=== PATIENT | female | born 1950 | race African-American/Black ===

== ENCOUNTER 2020-07-04 20:58 | Inpatient (IN) | payer MEDICARE, MEDICAID ==
[~2020-07-04] VITALS: Ht 174 cm; Wt 65.8 kg
[2020-07-04 20:58] VITALS: BP 148/64
[~2020-07-04 20:58] MED LIST: CLOP75TA4; DEXA5DRO; ESCI5TAB; FLUT1DIS; IBUP100T20; IPRA21SP2; ISOS5TAB4; PROT40; TRAM50TA3 MT; [UNRECOGNIZED DRUG - OTHER]
[2020-07-04] MEDS ORDERED: LORAZEPAM 1MG TABLET PO PRN (22:15)
[2020-07-04] MEDS ORDERED: ZOLPIDEM TARTRATE 5MG TABLET PO PRN (22:15)
[2020-07-04] MEDS ORDERED: ACETAMINOPHEN 325MG TABLET PO PRN (22:15)
[2020-07-04] MEDS ORDERED: HYDROCODONE/ACETAMINOPHEN 5/325MG TABLET PO PRN (22:15)
[2020-07-04] MEDS ORDERED: ONDANSETRON 4MG ODT PO PRN (22:15)
[2020-07-04 22:30] VITALS: BP 148/64
[2020-07-05] MEDS ORDERED: GABA-531 PO (04:28)
[2020-07-05] MEDS ORDERED: DOXE10CA2 PO (04:28)
[2020-07-05] MEDS ORDERED: ATOR40TA70 PO (04:28)
[2020-07-05] MEDS ORDERED: HYDR25TA PO (04:28)
[2020-07-05] MEDS ORDERED: CLON0.1T PO (04:28)
[2020-07-05] MEDS ORDERED: LISI30TA36 PO (04:28)
[2020-07-05] MEDS ORDERED: HYDR-3281 PO (04:28)
[2020-07-05 06:28] LABS: CHLORIDE 107 mEq/L (98-107)
[2020-07-05 06:35] LABS: BASOPHILS % 0.9 % (0.0-2.0); EOSINOPHILS % 0.8 % (0.0-5.0); HEMATOCRIT. 31.7 % (36.0-48.0); HEMOGLOBIN. 10.5 g/dL (12.0-16.0); LYMPHOCYTES % 40.9 % (20.0-50.0); MEAN CORPUSCULAR HEMOGLOBIN 28.4 pg (28.0-32.0); MEAN CORPUSCULAR VOLUME 86.1 fL (81.0-99.0); MEAN PLATELET VOLUME 8.6 fl (7.4-10.4); NEUTROPHILS % 48.4 % (40.0-76.0); PLATELET 245 x1000/uL (130-400); RED BLOOD CELL COUNT 3.69 mill/uL (4.2-5.4); RED CELL DISTRIBUTION WIDTH 16.2 % (11.6-14.6)
[2020-07-05 08:16] VITALS: BP 139/60
[2020-07-05] MEDS: GABAPENTIN 300MG CAPSULE PO SCH ×2 (10:20→16:27)
[2020-07-05] MEDS: LISINOPRIL 20MG TABLET PO SCH (10:21)
[2020-07-05] MEDS: CLONIDINE 0.1MG TABLET PO SCH ×2 (10:21→16:34)
[2020-07-05] MEDS: HYDROCODONE/ACETAMINOPHEN 5/325MG TABLET PO PRN ×2 (10:28→16:36)
[2020-07-05] MEDS: TAMOXIFEN 10MG TABLET PEG SCH ×2 (13:37→21:23)
[2020-07-05 15:10] LABS: CLARITY URINE CLEAR (CLEAR); COLOR URINE YELLOW (YELLOW); KETONES URINE TRACE (NEGATIVE); LEUKOCYTE ESTERASE URINE 1+ (NEGATIVE); NITRITE URINE NEGATIVE (NEGATIVE); OCCULT BLOOD URINE 1+ (NEGATIVE); PH URINE 5.5 (4.5-8.0); PROTEIN URINE TRACE (NEGATIVE); SPECIFIC GRAVITY URINE 1.019 (1.005-1.030); UROBILINOGEN URINE 0.2 E.U./dL (0.2-1.0)
[2020-07-05] MEDS: DOCUSATE SODIUM 100MG CAPSULE PO SCH (16:27)
[2020-07-05 20:00] VITALS: BP 123/61
[2020-07-05] MEDS: ATORVASTATIN CALCIUM 40MG TABLET PO SCH (21:23)
[2020-07-05] MEDS: POLYETHYLENE GLYCOL 3350 (17GM) 1 DOSE PACK PO SCH (21:24)
[2020-07-06 05:34] LABS: PHOSPHORUS 3.5 mg/dL (2.5-4.9)
[2020-07-06 05:52] LABS: FOLIC ACID (FOLATE) SERUM 9.3 ng/mL (>5.38)
[2020-07-06 06:12] LABS: BASOPHILS % 0.9 % (0.0-2.0); EOSINOPHILS % 1.9 % (0.0-5.0); HEMATOCRIT. 31.3 % (36.0-48.0); HEMOGLOBIN. 10.3 g/dL (12.0-16.0); LYMPHOCYTES % 42.1 % (20.0-50.0); MEAN CORPUSCULAR HEMOGLOBIN 28.3 pg (28.0-32.0); MEAN CORPUSCULAR VOLUME 86.4 fL (81.0-99.0); MEAN PLATELET VOLUME 8.5 fl (7.4-10.4); NEUTROPHILS % 46.1 % (40.0-76.0); PLATELET 279 x1000/uL (130-400); RED BLOOD CELL COUNT 3.63 mill/uL (4.2-5.4); RED CELL DISTRIBUTION WIDTH 16.3 % (11.6-14.6)
[2020-07-06] MEDS: PANTOPRAZOLE 40MG DR TABLET PO SCH (06:12)
[2020-07-06 08:00] VITALS: BP 136/91
[2020-07-06] MEDS ORDERED: HYDROCHLOROTHIAZIDE 25MG TABLET PO SCH (09:00)
[2020-07-06] MEDS ORDERED: THIAMINE HCL 100MG TABLET PO SCH (09:00)
[2020-07-06] MEDS: TAMOXIFEN 10MG TABLET PEG SCH ×2 (09:36→17:35)
[2020-07-06] MEDS: CLONIDINE 0.1MG TABLET PO SCH ×2 (09:36→17:30)
[2020-07-06] MEDS: THIAMINE HCL 100MG TABLET PO SCH (09:37)
[2020-07-06] MEDS: LISINOPRIL 20MG TABLET PO SCH (09:37)
[2020-07-06] MEDS: GABAPENTIN 300MG CAPSULE PO SCH ×2 (09:38→17:30)
[2020-07-06] MEDS: DOCUSATE SODIUM 100MG CAPSULE PO SCH ×2 (09:38→17:29)
[2020-07-06] MEDS: FOLIC ACID 1MG TABLET PO SCH (09:38)
[2020-07-06] MEDS: MULTIVITAMINS,THER W-MINERALS TABLET PO SCH (09:38)
[2020-07-06] MEDS: HYDROCODONE/ACETAMINOPHEN 5/325MG TABLET PO PRN ×2 (09:40→17:40)
[2020-07-06] MEDS: LACTULOSE 20G/30ML UDC PO SCH ×2 (17:29→21:06)
[2020-07-06] MEDS: FERROUS SULFATE 325MG TABLET PO SCH ×2 (17:30→17:41)
[2020-07-06 20:00] VITALS: BP 128/69
[2020-07-06] MEDS: POLYETHYLENE GLYCOL 3350 (17GM) 1 DOSE PACK PO SCH (21:00)
[2020-07-06] MEDS: ATORVASTATIN CALCIUM 40MG TABLET PO SCH (21:06)
[2020-07-07] MEDS: HYDROCODONE/ACETAMINOPHEN 5/325MG TABLET PO PRN (05:55)
[2020-07-07] MEDS: PANTOPRAZOLE 40MG DR TABLET PO SCH (05:55)
[2020-07-07] MEDS: LACTULOSE 20G/30ML UDC PO SCH (05:56)
[2020-07-07 07:55] VITALS: BP 128/47
[2020-07-07] MEDS: FERROUS SULFATE 325MG TABLET PO SCH ×3 (08:48→16:22)
[2020-07-07] MEDS: ASCORBIC ACID 500 MG TABLET PO SCH (08:48)
[2020-07-07] MEDS: GABAPENTIN 300MG CAPSULE PO SCH ×2 (08:48→16:24)
[2020-07-07] MEDS: CYANOCOBALAMIN 1000MCG/ML VIAL IM SCH (08:48)
[2020-07-07] MEDS: MULTIVITAMINS,THER W-MINERALS TABLET PO SCH (08:49)
[2020-07-07] MEDS: FOLIC ACID 1MG TABLET PO SCH (08:49)
[2020-07-07] MEDS: CLONIDINE 0.1MG TABLET PO SCH ×2 (08:49→16:24)
[2020-07-07] MEDS: LISINOPRIL 20MG TABLET PO SCH (08:49)
[2020-07-07] MEDS: DOCUSATE SODIUM 100MG CAPSULE PO SCH ×2 (08:51→16:22)
[2020-07-07] MEDS: TAMOXIFEN 10MG TABLET PEG SCH ×2 (09:08→16:23)
[2020-07-07] MEDS: THIAMINE HCL 100MG TABLET PO SCH (09:11)
[2020-07-07 16:28] VITALS: BP 127/55
[2020-07-07 20:00] VITALS: BP 122/50
[2020-07-07] MEDS: ATORVASTATIN CALCIUM 40MG TABLET PO SCH (20:36)
[2020-07-07] MEDS: POLYETHYLENE GLYCOL 3350 (17GM) 1 DOSE PACK PO SCH (20:36)
[2020-07-08] MEDS: HYDROCODONE/ACETAMINOPHEN 5/325MG TABLET PO PRN ×2 (00:20→15:20)
[2020-07-08] MEDS: FAMOTIDINE 20MG TABLET PO SCH (06:06)
[2020-07-08 07:58] VITALS: BP 134/65
[2020-07-08] MEDS: LISINOPRIL 20MG TABLET PO SCH (08:48)
[2020-07-08] MEDS: FOLIC ACID 1MG TABLET PO SCH (08:48)
[2020-07-08] MEDS: FERROUS SULFATE 325MG TABLET PO SCH ×3 (08:49→16:57)
[2020-07-08] MEDS: CLONIDINE 0.1MG TABLET PO SCH ×2 (08:49→16:58)
[2020-07-08] MEDS: CYANOCOBALAMIN 1000MCG/ML VIAL IM SCH (08:49)
[2020-07-08] MEDS: ASCORBIC ACID 500 MG TABLET PO SCH (08:50)
[2020-07-08] MEDS: GABAPENTIN 300MG CAPSULE PO SCH ×2 (08:50→16:57)
[2020-07-08] MEDS: DOCUSATE SODIUM 100MG CAPSULE PO SCH ×2 (08:50→16:57)
[2020-07-08] MEDS: MULTIVITAMINS,THER W-MINERALS TABLET PO SCH (08:50)
[2020-07-08] MEDS: TAMOXIFEN 10MG TABLET PEG SCH ×2 (08:53→17:00)
[2020-07-08] MEDS: THIAMINE HCL 100MG TABLET PO SCH (10:04)
[2020-07-08 15:08] VITALS: BP 140/56
[2020-07-08 16:58] VITALS: BP 122/94
[2020-07-08 20:00] VITALS: BP 113/55
[2020-07-08] MEDS: POLYETHYLENE GLYCOL 3350 (17GM) 1 DOSE PACK PO SCH (20:21)
[2020-07-08] MEDS: ATORVASTATIN CALCIUM 40MG TABLET PO SCH (20:21)
[2020-07-09] MEDS: HYDROCODONE/ACETAMINOPHEN 5/325MG TABLET PO PRN (04:39)
[2020-07-09] MEDS: FAMOTIDINE 20MG TABLET PO SCH (06:15)
[2020-07-09 08:24] VITALS: BP 125/52
[2020-07-09] MEDS: TAMOXIFEN 10MG TABLET PEG SCH ×2 (10:07→17:17)
[2020-07-09] MEDS: GABAPENTIN 300MG CAPSULE PO SCH ×2 (10:08→17:16)
[2020-07-09] MEDS: ASCORBIC ACID 500 MG TABLET PO SCH (10:08)
[2020-07-09] MEDS: FERROUS SULFATE 325MG TABLET PO SCH ×3 (10:08→17:17)
[2020-07-09] MEDS: DOCUSATE SODIUM 100MG CAPSULE PO SCH ×2 (10:08→17:16)
[2020-07-09] MEDS: FOLIC ACID 1MG TABLET PO SCH (10:08)
[2020-07-09] MEDS: MULTIVITAMINS,THER W-MINERALS TABLET PO SCH (10:08)
[2020-07-09] MEDS: CLONIDINE 0.1MG TABLET PO SCH ×2 (10:09→17:16)
[2020-07-09] MEDS: LISINOPRIL 20MG TABLET PO SCH (10:09)
[2020-07-09] MEDS: CYANOCOBALAMIN 1000MCG/ML VIAL IM SCH (10:10)
[2020-07-09] MEDS: THIAMINE HCL 100MG TABLET PO SCH (10:14)
[2020-07-09] MEDS ORDERED: DOCU-150 PO (11:37)
[2020-07-09] MEDS ORDERED: ATOR40TA70 PO (11:37)
[2020-07-09] MEDS ORDERED: CLON0.1T PO (11:37)
[2020-07-09] MEDS ORDERED: FERR325T23 PO (11:37)
[2020-07-09] MEDS ORDERED: LISI-604 PO (11:37)
[2020-07-09 18:16] VITALS: BP 125/60
[2020-07-20] MEDS ORDERED: CYANOCOBALAMIN 1000MCG/ML VIAL IM SCH (09:00)
== END 2020-07-09 18:59 | disposition home or self-care (01) | DRG 125 ==
PROVIDERS: ADMIT Physical Medicine & Rehabilitation Spinal Cord Injury Medicine; ATTEND Internal Medicine
DX: S00.201A Unspecified superficial injury of right eyelid and periocular area, initial encounter (principal); E87.1 Hypo-osmolality and hyponatremia; S00.03XA Contusion of scalp, initial encounter; S49.91XA Unspecified injury of right shoulder and upper arm, initial encounter; W19.XXXA Unspecified fall, initial encounter; R26.2 Difficulty in walking, not elsewhere classified; D64.9 Anemia, unspecified; R53.81 Other malaise; J44.9 Chronic obstructive pulmonary disease, unspecified; Z72.0 Tobacco use; E87.6 Hypokalemia; R94.5 Abnormal results of liver function studies
CPT/HCPCS: 36415; 70551; 80048; 80053; 80061; 81003; 82140; 82306; 82550; 82607; 82746; 83540; 83550; 83735; 84100; 84134; 84443; 85025; 92523; 93970; 97110; 97112; 97116; 97162; 97166; 97530; 97535; J3420